=== PATIENT | male | born 1980 | race Caucasian/White ===

== ENCOUNTER 2019-05-17 14:22 | Emergency (ER) | payer OTHER ==
[~2019-05-17] VITALS: Ht 172.7 cm; Wt 85.7 kg
[2019-05-17] MEDS ORDERED: LISINOPRIL20 MG PO (14:28)
[2019-05-17] MEDS ORDERED: FLEXERIL PO (14:29)
[2019-05-17] MEDS ORDERED: KEFLEX500 M1 PO (17:48)
[2019-05-17 18:55] VITALS: BP 142/68
== END 2019-05-17 18:00 | disposition home or self-care (01) ==
LOC: ER 14:22
DX: S61.215A Laceration without foreign body of left ring finger without damage to nail, initial encounter (principal); Z23 Encounter for immunization; F17.210 Nicotine dependence, cigarettes, uncomplicated; F10.10 Alcohol abuse, uncomplicated; Z79.899 Other long term (current) drug therapy; W26.8XXA Contact with other sharp object(s), not elsewhere classified, initial encounter; Y93.89 Activity, other specified; Y92.098 Other place in other non-institutional residence as the place of occurrence of the external cause; Y99.8 Other external cause status